=== PATIENT | female | born 1970 | race African-American/Black ===

== ENCOUNTER 2019-02-24 21:40 | Emergency (ER) | payer OTHER ==
[~2019-02-24] VITALS: Ht 165.1 cm; Wt 65.8 kg
[2019-02-24 21:45] VITALS: BP 125/72
--- NOTE | 2019-02-24 21:47 | NUR ---
PT AMBULATED TO BED 7. PROVIDED WITH URINE CUP.
[2019-02-24] MEDS ORDERED: NACL 0.9% 1,000 ML IV ONE (22:05)
[2019-02-24] MEDS ORDERED: KETOROLAC 30 MG/ML VIAL IVP ONE (22:05)
[2019-02-24] MEDS ORDERED: MORPHINE SULFATE 2 MG/ML SYR IVP ONE (22:05)
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
--- NOTE | 2019-02-24 22:22 | NUR ---
PT TAKEN TO CT VIA [facility].
[2019-02-24 22:29] LABS: BASOPHILS % (AUTO) 0.3 % (0.0-2.0); EOSINOPHILS # (AUTO) 0.1 K/uL (0-0.4); HEMATOCRIT 34.4 % (36-48); HEMOGLOBIN 11.2 g/dL (12.0-16.0); LYMPHOCYTES # (AUTO) 2.1 K/uL (2.5-16.5); LYMPHOCYTES % (AUTO) 36.1 % (20.5-51.1); MEAN CORPUSCULAR HEMOGLOBIN 27 pg (27-31); MEAN CORPUSCULAR HGB CONC 33 g/dL (33-37); MEAN CORPUSCULAR VOLUME 82.4 fL (80-94); MONOCYTES # (AUTO) 0.6 K/uL (0.8-1.0); MONOCYTES % (AUTO) 10.9 % (1.7-9.3); NEUTROPHILS # (AUTO) 2.9 K/uL (1.8-7.7); NEUTROPHILS % (AUTO) 50.7 % (42.2-75.2); PLATELET COUNT (AUTO) 188 K/uL (140-450); RED BLOOD CELL COUNT(AUTO) 4.17 MIL/uL (4.20-5.40); WHITE BLOOD COUNT (AUTO) 5.7 K/uL (4.8-10.8)
[2019-02-24 22:31] LABS: APPEARANCE,URINE SL CLOUDY (CLEAR); BILIRUBIN,URINE NEGATIVE (NEGATIVE); BLOOD, URINE TRACE-L (NEGATIVE); COLOR,URINE YELLOW (YELLOW); LEUKOCYTE ESTERASE ,URINE 1+ (NEGATIVE); NITRITE, URINE POSITIVE (NEGATIVE); PH,URINE 5.5 (5.0-9.0); UGLUCOSE NEGATIVE (NEGATIVE)
[2019-02-24 22:51] LABS: ALBUMIN 3.6 g/dL (3.4-5.0); ANION GAP 11.1 (8-16); CARBON DIOXIDE 27.4 mmol/L (21-32); POTASSIUM 3.5 mmol/L (3.5-5.1); TOTAL BILIRUBIN 0.2 mg/dL (0.0-1.0)
[2019-02-24 22:58] LABS: RBC,URINE 0-5 /HPF (0-5)
[2019-02-25] VITALS: BP 116/56
--- NOTE | 2019-02-25 | NUR ---
Patient discharged with v/s stable. Written and verbal after care instructions given and explained. Patient alert, oriented and verbalized understanding of instructions. Ambulatory with steady gait. All questions addressed prior to discharge. ID band removed. Patient advised to follow up with PMD. Rx of TRAMADOL, ROBAXIN, BACTRIM, AND MOTRIN given. Patient educated on indication of medication including possible reaction and side effects. Opportunity to ask questions provided and answered.
== END 2019-02-25 | disposition home or self-care (01) ==
LOC: MED 21:40
DX: N39.0 Urinary tract infection, site not specified (principal)
CPT/HCPCS: 36415; 72131; 80053; 81001; 81025; 83690; 85025; 87086; 87186; 96374; 96375; 99284; J1885; J2270; J7030

== ENCOUNTER 2020-11-17 13:39 | Emergency (ER) | payer SELFPAY ==
[~2020-11-17] VITALS: Ht 165.1 cm; Wt 65.8 kg
[2020-11-17 13:46] VITALS: BP 99/57
--- NOTE | 2020-11-17 13:58 | NUR ---
50 Y/O FEMALE C/O 710 LOWER ABDOMINAL PAIN THAT RADIATES TO BACK WITH ABNORMAL VAGINAL BLEEDING THAT COMES AND GOES SINCE SEPTEMBER 2020. PT STATES SHE HASNT HAD A PERIOD DUE TO MENOPAUSE FOR 2 YEARS. DENIES OTC MEDS. PT DENIES N/V/SOB/ LBM YESTERDAY. NO BURNING OR PAIN DURING URINATION. PT IS A/O X4 WITH EVEN AND UNLABORED RESPIRATIONS MED HX: TUBAL LIGATION 2001 NKA
--- NOTE | 2020-11-17 14:06 | NUR ---
DR MOCTEZUMA AT BEDSIDE FOR EVALUATION
--- NOTE | 2020-11-17 14:15 | NUR ---
PT AMBULATED TO RESTROOM FOR URINE COLLECTION WITH STEADY GAIT
[2020-11-17 14:45] VITALS: BP 99/57
--- NOTE | 2020-11-17 14:45 | NUR ---
Patient discharged with v/s stable. Written and verbal after care instructions given and explained. Patient verbalized understanding. Ambulatory with steady gait. All questions addressed prior to discharge. Advised to follow up with PMD.
[2020-11-17 15:16] LABS: APPEARANCE,URINE HAZY (CLEAR); BILIRUBIN,URINE NEGATIVE (NEGATIVE); BLOOD, URINE TRACE-I (NEGATIVE); COLOR,URINE YELLOW (YELLOW); LEUKOCYTE ESTERASE ,URINE TRACE (NEGATIVE); NITRITE, URINE POSITIVE (NEGATIVE); UGLUCOSE NEGATIVE (NEGATIVE)
[2020-11-17 15:20] LABS: RBC,URINE 0-5 /HPF (0-5)
== END 2020-11-17 14:45 | disposition home or self-care (01) ==
LOC: MED 13:39
DX: N93.9 Abnormal uterine and vaginal bleeding, unspecified (principal); I51.9 Heart disease, unspecified
CPT/HCPCS: 81001; 81025; 87086; 99283

== ENCOUNTER 2022-09-09 18:34 | Emergency (ER) | payer MEDICAID, OTHER ==
[~2022-09-09] VITALS: Ht 165.1 cm; Wt 68.0 kg
[2022-09-09 18:41] VITALS: BP 118/81
--- NOTE | 2022-09-09 18:43 | NUR ---
PT AMBULATED TO LOBBY
[2022-09-09 19:09] LABS: BASOPHILS % (AUTO) 0.3 % (0.0-2.0); EOSINOPHILS % (AUTO) 0.4 % (0.0-4.0); HEMATOCRIT 34.6 % (36-48); HEMOGLOBIN 11.3 g/dL (12.0-16.0); LYMPHOCYTES # (AUTO) 2.1 K/uL (2.5-16.5); LYMPHOCYTES % (AUTO) 19.1 % (20.5-51.1); MEAN CORPUSCULAR HEMOGLOBIN 27 pg (27-31); MEAN CORPUSCULAR HGB CONC 33 g/dL (33-37); MEAN CORPUSCULAR VOLUME 82.1 fL (80-94); MONOCYTES # (AUTO) 0.7 K/uL (0.8-1.0); MONOCYTES % (AUTO) 6.7 % (1.7-9.3); NEUTROPHILS % (AUTO) 73.5 % (42.2-75.2); PLATELET COUNT (AUTO) 222 K/uL (140-450); RED BLOOD CELL COUNT(AUTO) 4.21 MIL/uL (4.20-5.40); RED CELL DISTRIBUTION WIDTH 14.6 % (11.6-13.7); WHITE BLOOD COUNT (AUTO) 10.9 K/uL (4.8-10.8)
[2022-09-09 19:29] LABS: ALBUMIN 3.5 g/dL (3.4-5.0); ANION GAP 13.4 (8-16); CREATININE 1.3 mg/dL (0.6-1.3); POTASSIUM 3.4 mmol/L (3.5-5.1); TOTAL BILIRUBIN 0.2 mg/dL (0.0-1.0)
[2022-09-09] MEDS ORDERED: KETOROLAC 15 MG/ML VIAL IM ONE (20:05)
[2022-09-09 20:16] LABS: BILIRUBIN,URINE NEGATIVE (NEGATIVE); BLOOD, URINE NEGATIVE (NEGATIVE); COLOR,URINE YELLOW (YELLOW); LEUKOCYTE ESTERASE ,URINE TRACE (NEGATIVE); NITRITE, URINE POSITIVE (NEGATIVE); UGLUCOSE NEGATIVE (NEGATIVE)
[2022-09-09 20:22] LABS: APPEARANCE,URINE HAZY (CLEAR)
[2022-09-09 20:35] LABS: RBC,URINE NONE SEEN /HPF (0-5)
[2022-09-09] MEDS ORDERED: IBUP-2213 PO (22:25)
[2022-09-09] MEDS ORDERED: ONDA-188 SL (22:25)
[2022-09-09] MEDS ORDERED: BENZ200C4 PO (22:25)
[2022-09-09] MEDS ORDERED: CEPH-588 PO (22:25)
[2022-09-09 22:50] VITALS: BP 118/81
--- NOTE | 2022-09-09 22:50 | NUR ---
Patient discharged with v/s stable. Written and verbal after care instructions given and explained. Patient alert, oriented and verbalized understanding of instructions. Ambulatory with steady gait. All questions addressed prior to discharge. ID band removed. Patient advised to follow up with PMD. Rx of KEFLEX, MOTRIN, ZOFRAN given. Patient educated on indication of medication including possible reaction and side effects. Opportunity to ask questions provided and answered.
== END 2022-09-09 22:50 | disposition home or self-care (01) ==
LOC: MED 18:34
DX: J06.9 Acute upper respiratory infection, unspecified (principal); Z20.822 Contact with and (suspected) exposure to COVID-19; N39.0 Urinary tract infection, site not specified; N12 Tubulo-interstitial nephritis, not specified as acute or chronic; Z79.899 Other long term (current) drug therapy
CPT/HCPCS: 36415; 71045; 80053; 81001; 83880; 84484; 85025; 87086; 87426; 87804; 93005; 96372; 99285; J1885